=== PATIENT | male | born 1980 | race American Indian/Alaskan Native ===

== ENCOUNTER 2017-10-03 12:49 | Emergency (ER) | payer MEDICAID ==
[~2017-10-03] VITALS: Ht 175.3 cm; Wt 81.6 kg
[2017-10-03 13:17] VITALS: BP 123/81
== END 2017-10-03 13:44 | disposition home or self-care (01) ==
LOC: ER 13:07
DX: M25.562 Pain in left knee (principal); X58.XXXA Exposure to other specified factors, initial encounter; Y93.89 Activity, other specified; Y92.89 Other specified places as the place of occurrence of the external cause; Y99.8 Other external cause status